=== PATIENT | male | born 1955 | race African-American/Black ===

== ENCOUNTER 2019-06-16 20:57 | Emergency (ER) | payer BC, OTHER ==
[2019-06-16 21:05] VITALS: BMI 29.0
--- NOTE | 2019-06-16 22:47 | PDOC ---
History of Present Illness - General Chief Complaint: Chest Pain Stated Complaint: CHEST PAIN & HIGH BP Past History - Psycho Social/Smoking Cessation Hx Smoking History: Former smoker Have you smoked in the past 12 months: No Information on smoking cessation initiated: No *Physical Exam - Vital Signs Last Vital Signs Temp Pulse Resp BP Pulse Ox 98.1 F 86 19 166/82 100 06/16/19 21:01 06/16/19 21:01 06/16/19 21:01 06/16/19 21:01 06/16/19 21:01 Discharge - Follow up/Referral Referrals: Jose Juarez MD [Primary Care Provider] - - Patient Discharge Instructions - Post Discharge Activity
[2019-06-16] MEDS ORDERED: MAG HYDROX/AL HYDROX/SIMETH 30 ML UNIT-DOSE CUP PO ONE (23:02)
[2019-06-16] MEDS ORDERED: FAMOTIDINE 20 MG/50 ML IVPB 20 MG/50 ML MG IVPB ONE ×2 (23:02→23:07)
[2019-06-16] MEDS ORDERED: MAG HYDROX/AL HYDROX/SIMETH 30 ML UNIT-DOSE CUP ONE (23:04)
[2019-06-16 23:07] LABS: BASO % 1.4 % (0-2.0); EOS % 2.3 % (0-4.5); HEMATOCRIT 46.8 % (35.4-49); HEMOGLOBIN 15.3 GM/dL (11.7-16.9); LYMPH % 27.7 % (8-40); MCH 28.4 pg (25.7-33.7); MCHC 32.8 g/dl (32.0-35.9); MEAN CELL VOLUME 86.4 fl (80-96); MEAN PLT VOLUME 7.5 fl (7.5-11.1); MONO % 8.1 % (3.8-10.2); NEUT % 60.5 % (42.8-82.8); PLATELET COUNT 294 K/MM3 (134-434); RBC 5.41 M/mm3 (4.00-5.60); WHITE BLOOD COUNT 6.6 K/mm3 (4.0-10.0)
--- NOTE | 2019-06-16 23:11 | PDOC ---
History of Present Illness - History of Present Illness Initial Comments: 06/16/19 23:14 63 yo M PMH HTN, GERD, known 4mm peripheral L upper lobe nodule, presenting with chest pain. Began 30 minutes before arriving to the ED, felt like "pressure ", non-radiating, then transitioned to become his normal burning epigastric GERD pain. No SOB, N/V, constipation/diarrhea, fevers/chills, [place]. States that he has never felt that type of pain before, but it seems to have now resolved. Patient is long -term smoker, transitioned in 2011 to vaping. <Gabbie Koch - Last Filed: 06/17/19 00:31> <Esperanza Salmeron - Last Filed: 06/17/19 02:24> - General Chief Complaint: Chest Pain Stated Complaint: CHEST PAIN & HIGH BP Time Seen by Provider: 06/16/19 22:51 Past History - Psycho Social/Smoking Cessation Hx Smoking History: Former smoker Have you smoked in the past 12 months: No Information on smoking cessation initiated: No <Gabbie Koch - Last Filed: 06/17/19 00:31> <Esperanza Salmeron - Last Filed: 06/17/19 02:24> - Past Medical History Allergies/Adverse Reactions: Allergies Allergy/AdvReac Type Severity Reaction Status Date / Time No Known Allergies Allergy Verified 06/16/19 22:55 Home Medications: Ambulatory Orders Amlodipine Besylate/Benazepril [Amlodipine-Benazepril 10-20 mg] 10 mg PO DAILY 06/16/19 Clopidogrel Bisulfate [Clopidogrel] 75 mg PO DAILY 06/16/19 Lisinopril [Prinivil] 10 mg PO DAILY 06/16/19 Simvastatin 5 mg PO DAILY 06/16/19 *Physical Exam - Vital Signs Last Vital Signs Temp Pulse Resp BP Pulse Ox 98.1 F 86 19 166/82 100 06/16/19 21:01 06/16/19 21:01 06/16/19 21:01 06/16/19 21:01 06/16/19 21:01 - Physical Exam Comments: 06/16/19 23:40 Gen: well-developed, well-nourished, NAD Neuro: AAOX4, CN II-XII intact, FTN intact, EOMI, PERRLA, 5/5 strength, SILT HEENT: atraumatic, normocephalic Neck: trachea midline, supple CV: regular rate, regular rhythm, no murmurs, rubs, or gallops Pulm: CTA b/l, no wheezing Abd: soft, non-distended, non-tender MSK: full ROM, intact pulses Extr: no edema, no deformities Skin: warm, dry <Gabbie Koch - Last Filed: 06/17/19 00:31> - Vital Signs Last Vital Signs Temp Pulse Resp BP Pulse Ox 97.8 F 59 L 18 146/90 100 06/17/19 00:49 06/17/19 00:49 06/17/19 00:49 06/17/19 00:49 06/17/19 00:49 <Esperanza Salmeron - Last Filed: 06/17/19 02:24> ED Treatment Course - LABORATORY CBC & Chemistry Diagram: 06/16/19 22:53 06/16/19 22:53 - Medications Given in the ED: ED Medications Discontinued Medications Generic Name Dose Route Start Last Admin Trade Name Valentine PRN Reason Stop Dose Admin Al Hydroxide/Mg Hydroxide 30 ml 06/16/19 23:02 06/16/19 23:05 Mylanta Oral Suspension - PO 06/16/19 23:03 30 ml ONCE ONE Administration <Gabbie Koch - Last Filed: 06/17/19 00:31> - LABORATORY CBC & Chemistry Diagram: 06/16/19 22:53 06/16/19 22:53 - ADDITIONAL ORDERS Additional order review: Laboratory Results 06/16/19 06/16/19 06/16/19 22:53 22:53 22:53 PT with INR 12.70 INR 1.08 PTT (Actin FS) 41.8 H Sodium 139 Potassium 4.1 Chloride 105 Carbon Dioxide 28 Anion Gap 6 L BUN 9.2 Creatinine 1.1 Est GFR (CKD-EPI)AfAm 82.37 Est GFR (CKD-EPI)NonAf 71.07 Random Glucose 139 H Calcium 9.2 Total Bilirubin 0.4 AST 26 ALT 34 Alkaline Phosphatase 117 Creatine Kinase Creatine Kinase Index CK-MB (CK-2) Troponin I B-Natriuretic Peptide 17.9 Total Protein 7.9 Albumin 4.0 Urine Color Yellow Urine Appearance Clear Urine pH 7.0 Ur Specific [place] 1.014 Urine Protein Negative Urine Glucose (UA) 2+ H Urine Ketones Negative Urine Blood Negative Urine Nitrite Negative Urine Bilirubin Negative Urine Urobilinogen 1.0 Ur Leukocyte Esterase Negative 06/16/19 22:53 PT with INR INR PTT (Actin FS) Sodium Potassium Chloride Carbon Dioxide Anion Gap BUN Creatinine Est GFR (CKD-EPI)AfAm Est GFR (CKD-EPI)NonAf Random Glucose Calcium Total Bilirubin AST ALT Alkaline Phosphatase Creatine Kinase 175 Creatine Kinase Index No Result Required. CK-MB (CK-2) < 1.0 Troponin I < 0.02 B-Natriuretic Peptide Total Protein Albumin Urine Color Urine Appearance Urine pH Ur Specific [place] Urine Protein Urine Glucose (UA) Urine Ketones Urine Blood Urine Nitrite Urine Bilirubin Urine Urobilinogen Ur Leukocyte Esterase 06/16/19 22:53 RBC 5.41 MCV 86.4 MCHC 32.8 RDW 15.0 MPV 7.5 Neutrophils % 60.5 Lymphocytes % 27.7 Monocytes % 8.1 Eosinophils % 2.3 Basophils % 1.4 - Medications Given in the ED: ED Medications Discontinued Medications Generic Name Dose Route Start Last Admin Trade Name Freq PRN Reason Stop Dose Admin Al Hydroxide/Mg Hydroxide 30 ml 06/16/19 23:02 06/16/19 23:05 Mylanta Oral Suspension - PO 06/16/19 23:03 30 ml ONCE ONE Administration Famotidine/Sodium Chloride 20 mg in 50 mls @ 100 mls/hr 06/16/19 23:02 23:05 Pepcid 20 Mg Premixed Ivpb - IVPB 06/16/19 23:31 100 mls/hr ONCE ONE Administration Simethicone 80 mg 06/16/19 23:55 06/17/19 00:18 Mylicon - PO 06/16/19 23:56 80 mg ONCE ONE Administration <Esperanza Salmeron - Last Filed: 06/17/19 02:24> Medical Decision Making - Medical Decision Making 06/16/19 23:10 Concern for ACS v GERD. - CBC, CMP, trop - EKG, Chest PA +L - UA/UC EKG normal sinus at 69 bpm, no ST segment elevation, T wave inversion in V2, V3. No priors 06/16/19 23:47 CBC, CMP with no concerning findings, initial troponin negative. 06/16/19 23:48 Chest PA + L unchanged from prior, no acute pathology. 06/16/19 23:51 Patient feeling better overall, however, states that his "gas pain is moving into his upper back". Will definitely get second trop. Give simethicone. 06/17/19 00:31 Patient signed out to Dr. Salmeron, will follow up second trop. <Gabbie Koch - Last Filed: 06/17/19 00:31> Discharge <Gabbie Koch - Last Filed: 06/17/19 00:31> - Discharge Information Problems reviewed: Yes - Admission No <Esperanza Salmeron - Last Filed: 06/17/19 02:24> - Discharge Information Clinical Impression/Diagnosis: Atypical chest pain Condition: Stable Disposition: HOME - Follow up/Referral Referrals: Jose Juarez MD [Primary Care Provider] - - Patient Discharge Instructions Patient Printed Discharge Instructions: DI for Atypical Chest Pain Additional Instructions: You were seen in the ED for complaints of chest pain. Your results were unremarkable You should follow up with your Family Doctor within 1 week. Return to the ED if you experience chest pain, shortness of breath, nausea, vomiting, sweating or any other concerning symptoms. - Post Discharge Activity
[2019-06-16 23:12] LABS: INR 1.08 (0.83-1.09); PROTHROMBIN TIME (PATIENT) 12.7 SEC (9.7-13.0); URINE APPEARANCE CLEAR; URINE BILIRUBIN NEGATIVE (NEGATIVE); URINE COLOR YELLOW; URINE GLUCOSE (UA) 2+ (NEGATIVE); URINE KETONE NEGATIVE (NEGATIVE); URINE LEUK ESTERASE NEGATIVE (NEGATIVE); URINE NITRITE NEGATIVE (NEGATIVE); URINE PROTEIN NEGATIVE (NEGATIVE)
[2019-06-16 23:14] LABS: ACTIVATED PTT 41.8 SECONDS (25.2-36.5)
[2019-06-16 23:38] LABS: BILIRUBIN,TOTAL 0.4 mg/dL (0.2-1); BLOOD UREA NITROGEN 9.2 mg/dL (7-18); CALCIUM 9.2 mg/dL (8.5-10.1); CREATININE 1.1 mg/dL (0.55-1.3); N-TERMINAL BNP 17.9 pg/ml (5-125); POTASSIUM 4.1 mmol/L (3.5-5.1); TOT PROT 7.9 g/dl (6.4-8.2)
[2019-06-16] MEDS ORDERED: SIMETHICONE 80 MG TAB.CHEW (FP) PO ONE (23:55)
[2019-06-17 00:51] VITALS: PULSE 59
--- NOTE | 2019-06-17 01:47 | PDOC ---
Documentation entered by Melissa Rodríguez SCRIBE, acting as scribe for Emilee Andrea MD. Emilee Andrea MD: This documentation has been prepared by the Marcos barker Nirvannie, SCRIBE, under my direction and personally reviewed by me in its entirety. I confirm that the documentation accurately reflects all work, treatment, procedures, and medical decision making performed by me. Attending Attestation - Resident Resident Name: Gabbie Koch - ED Attending Attestation I have performed the following: I have examined & evaluated the patient, The case was reviewed & discussed with the resident, I agree w/resident's findings & plan - HPI HPI: 06/16/19 23:46 wnwd 63 yo male p/w gerd like symptoms but initially he had chest pressure and this has not proceeded his GERD symptoms in the past - Physicial Exam PE: 06/17/19 00:09 wnwd 63 yo male head ncat neck no bruits lungs cta b/l cvs [id number] abd nontender extremities no edema skin warm and dry neuro axox3,ambulatory - Medical Decision Making 06/17/19 00:11 EKG is normal sinus rhythm at 69 bpm, nonspecific T wave abnormalities, normal QTC of 424 ms, there are some inverted T waves V1 V2 plan is for 2 troponins and if they are negative ,the pt will be discharged home 06/17/19 01:45
[2019-06-17 02:36] VITALS: BP 145/67; TEMP 98
--- NOTE | 2019-06-17 15:55 | EKG ---
Test Reason : Blood Pressure : / mmHG Vent. Rate : 069 BPM Atrial Rate : 069 BPM P-R Int : 138 ms QRS Dur : 090 ms QT Int : 396 ms P-R-T Axes : 070 -11 060 degrees QTc Int : 424 ms NORMAL SINUS RHYTHM POSSIBLE LEFT ATRIAL ENLARGEMENT NONSPECIFIC T WAVE ABNORMALITY ABNORMAL ECG NO PREVIOUS ECGS AVAILABLE Confirmed by CONNIE THOMAS MD ([id number]) on 06/17/2019 3:54:45 PM Referred By: Confirmed By:CONNIE THOMAS MD
== END 2019-06-17 02:30 | disposition home or self-care (01) ==
LOC: JER 20:57
PROC: 3E033GC Introduction of Other Therapeutic Substance into Peripheral Vein, Percutaneous Approach (ICD-10-PCS; principal; 2019-06-16)
DX: R07.9 Chest pain, unspecified (principal); K21.9 Gastro-esophageal reflux disease without esophagitis; R91.1 Solitary pulmonary nodule; F17.290 Nicotine dependence, other tobacco product, uncomplicated
CPT/HCPCS: 36415; 71046-TC-FY; 80053; 81003; 82550; 82553; 83880; 84484; 85025; 85610; 85730; 87086; 93005; 93010; 99284-25